=== PATIENT | male | born 1935 | race Caucasian/White ===

== ENCOUNTER → 2016-11-06 | Outpatient (CLI) | payer OTHER ==
[~2016-11-06] MED LIST: ASPIR 8181 MG PO; BRIMONIDINE TAR1 BO1 OP; FLOMAX0.4 MG PO; FLONASE 0.05%50 MCG NASAL; LIPITOR 20 MG T20 M1 PO; MUCINEX TA600 MG/TA2 PO; NORCO 5-325 TA1 EACH PO; OMEPRAZOLE 20 M20 M1 PO; PROSCAR 5MG TABL5 MG PO; TYLENOL325 MG PO
--- NOTE | ~2016-11-06 | 2DMMODE ---
[facility] [place] [address] 2 D/M-MODE ECHOCARDIOGRAM Name: KODY PERDOMO Room #: REG [facility]#: [id number] Admission: 11/06/16 Attend Phys: Calixto Vasquez Discharge: Date of : 35 Date of Service: 11/06/16 1204 Report #: [id number] THIS REPORT FOR: //name// APPROVED REPORT Study performed: 11/06/2016 10:04:30 EXAM: Comprehensive 2D, Doppler, and color-flow Echocardiogram Patient Location: Out-Patient Status: routine BSA: 2.00 HR: 90 bpm BP: 193/101 mmHg Other Information Study Quality: Adequate Indications Dyspnea, shoulder pain. 2D Dimensions RVDd: 29.70 mm LVEF(%): 60.43 (>50%) IVSd: 12.00 (7-11mm) LVOT Diam: 21.23 (18-24mm) LVDd: 44.77 mm PWd: 11.32 (7-11mm) Ascending Ao: 30.94 (22-36mm) LVDs: 30.40 (25-40mm) Aortic Root: 35.35 mm Priest's LVEF: 60.43 % Volumes Left Atrial Volume (Systole) Single Plane 4CH: 35.31 mL Single Plane 2CH: 44.02 mL LA ESV Index: 21.00 mL/m2 Aortic Valve AoV Peak Helio.: 1.77 m/s AO Peak Gr.: 12.59 mmHg LVOT Max P.10 mmHg LVOT Max V: 1.01 m/s NKECHI Vmax: 2.02 cm2 Mitral Valve E/A Ratio: 0.5 MV Decel. Time: 149.78 ms MV E Max Helio.: 0.58 m/s [facility] [place] [address] 2 D/M-MODE ECHOCARDIOGRAM Name: KODY PERDOMO Room #: [facility]#: [id number] Admission: 11/06/16 Attend Phys: Calixto Vasquez Discharge: Date of : 35 Date of Service: 11/06/16 1204 Report #: [id number] MV A Helio.: 1.13 m/s MV PHT: 43.44 ms IVRT: 72.66 ms Pulmonary Valve PV Peak Helio.: 0.90 m/s PV Peak Gr.: 3.22 mmHg Tricuspid Valve TR Peak Helio.: 2.95 m/s RAP Estimate: 5.00 mmHg TR Peak Gr.: 34.88 mmHg PA Pressure: 40.00 mmHg Left Ventricle The left ventricle is normal size. There is normal LV segmental wall motion. Mild concentric left ventricular hypertrophy. Left ventricular systolic function is normal. LVEF is 55-60%. Mild diastolic dysfunction is present (impaired relaxation pattern). Right Ventricle The right ventricle is normal size. The right ventricular systolic function is normal. Atria The left atrium size is normal. The right atrium size is normal. Aortic Valve Aortic valve is moderately calcified, trileaflet. Mild aortic regurgitation. There is no aortic valvular stenosis. Mitral Valve Mild mitral annular calcification. Trace mitral regurgitation. Tricuspid Valve The tricuspid valve is normal in structure. There is trace to mild tricuspid regurgitation. The right atrial pressure is estimated at 5 mmHg. There is mild-moderate pulmonary hypertension with an estimated PAP of 40mmHg. Pulmonic Valve The pulmonary valve is normal in structure. Trace pulmonic regurgitation. [employer] [facility] [address] [place] [address] 2 D/M-MODE ECHOCARDIOGRAM Name: KODY PERDOMO Room #: [facility]#: [id number] Admission: 11/06/16 Attend Phys: Calixto Vasquez Discharge: Date of : 35 Date of Service: 11/06/16 1204 Report #: [id number] The aortic root is normal in size. The ascending aorta is normal in size. IVC is normal in size and collapses >50% with inspiration. Pericardium No pericardial effusion <Conclusion> Left ventricular systolic function is normal. There is normal LV segmental wall motion. LVEF is 55-60%. Mild diastolic dysfunction is present (impaired relaxation pattern). Aortic valve is moderately calcified, trileaflet. No aortic valvular stenosis, mild insufficiency. Mild mitral annular calcification. Trace mitral regurgitation. Pulmonary artery pressure could not be reliably ascertained No pericardial effusion <ELECTRONICALLY SIGNED> By: Kartik Gibbons MD, [facility] 11/06/16 1204 03 03 Kartik Gibbons MD, FAC /INF
== END ==
LOC: CV 06:19
DX: M25.519 Pain in unspecified shoulder (principal); R06.00 Dyspnea, unspecified; R06.02 Shortness of breath; R94.31 Abnormal electrocardiogram [ECG] [EKG]

== ENCOUNTER → 2016-12-06 | Outpatient (CLI) | payer OTHER | LOC: SPEECH 10:59 → RAD 10:59 | DX: R13.19 Other dysphagia (principal); R06.02 Shortness of breath ==

== ENCOUNTER → 2017-02-08 | Outpatient (CLI) | payer OTHER | LOC: NUC 11:58 | DX: I25.10 Atherosclerotic heart disease of native coronary artery without angina pectoris (principal) ==

== ENCOUNTER → 2017-03-08 | Outpatient (CLI) | payer OTHER ==
[~2017-03-08] VITALS: Ht 167.6 cm; Wt 83.9 kg
[~2017-03-08] MED LIST changes: +AMOXICILLIN 50500 MG PO; +IMDUR 60 MG TAB60 M1 PO; +TOPROL XL25 MG PO
--- NOTE | ~2017-03-08 | CATHLAB ---
[facility] [address] [place] [address] INVASIVE PROCEDURE REPORT Name: CONORKODY Bower Room #: [facility]#: [id number] Admission: 03/08/17 Attend Phys: Kartik Gibbons, Discharge: Date of : 35 Date of Service: 03/08/17 1740 Report #: [id number] THIS REPORT FOR: //name// APPROVED REPORT Patient Details Patient Status: Out-Patient Room #: The patient is a 81 year-old male Event Personnel Kartik Gibbons School Boat [employer], Padma Bonilla, Rob Zhu Penny, Wes RN, Zack Kellogg RN communications intern Performed Art Access - R femoral artery* [id number] Initial Mod Sed Same Phys/QHP Gr5y [id number] Mod Sed Same Phys/QHP Ea [id number] Left Heart Cath w/or w/o Coronaries [id number] [facility] Hemostasis w/ Mynx Procedure Narrative The patient was brought electively to the Cardiac Catheterization Laboratory and was prepped and draped in a sterile manner. The was infiltrated with 1% Lidocaine subcutaneous anesthesia. A PINNACLE 6FR Sheath #[id number] sheath was inserted into the RFA^. Coronary angiography was performed using coronary diagnostic catheters. The right coronary system was accessed and visualized with a JR 4 catheter. The left coronary system was accessed and visualized with a JL 4 catheter. The left ventricle was accessed and visualized with a Pigtal catheter. Left ventricular/Aortic Valve gradient assessed via catheter pullback. Pre-demployment femoral angiogram was performed . Closure device was deployed with a 6 Fr Mynx. The patient tolerated the procedure well and there were no complications associated with the procedure. There was no hematoma. Intraoperative Conscious Sedation Sedation start time: 07:46 Case end Time: 08:40 Fentanyl 25.0 mcg Versed 2.0 mg Fluoro Time: 8.58 minutes Dose: DAP 7485.90 cGycm2 1027 mGy Contrast Type and Amount: Visipaque 95 ml Coronary Angiography The patient's coronary anatomy is co- dominant. [address] [address] INVASIVE PROCEDURE REPORT Name: KODY PERDOMO Room #: [facility]#: [id number] Admission: 03/08/17 Attend Phys: Kartik Gibbons, Discharge: Date of : 35 Date of Service: 03/08/17 1740 Report #: [id number] Diagnostic Cath Left Main 50% distal left main stenosis LAD 50-60% ostial LAD stenosis. Mild mid to distal plaquing Diagonal 1 Moderate size, mild plaquing Diagonal 2 small, angiographically normal Circumflex Co-dominant. Ostial 85% stenosis off of left main OM1 Large, mild plaquing OM2 Moderate size, mild plaquing Right Coronary Mild ostial plaquing Mild 20% mid vessel plaquing Left Ventriculography Left Ventriculography was not performed. Hemodynamics The aortic pressure is 146/67 mmHg with a mean of 99 mmHg. The left ventricular pressure is 161/9 mmHg with a mean of mmHg. The left ventricular end diastolic pressure is 24 mmHg. There was no gradient across the aortic valve upon pullback. Conclusion 1. Distal LM stenosis 50% 2. Ostial LAD stenosis 50-60% 3. Ostial Cx stenosis 85% (co-dominant) 4. Mild RCA plaquing <ELECTRONICALLY SIGNED> By: Kartik Gibbons MD, FACC 03/08/171739 39 39 Kartik Gibbons MD, FACC /INF
[2017-03-08 07:13] VITALS: BP 168/78
== END | disposition home or self-care (01) ==
LOC: CATH 06:32
DX: I25.10 Atherosclerotic heart disease of native coronary artery without angina pectoris (principal); K21.9 Gastro-esophageal reflux disease without esophagitis; N40.0 Benign prostatic hyperplasia without lower urinary tract symptoms; Z98.890 Other specified postprocedural states; Z87.891 Personal history of nicotine dependence